=== PATIENT | male | born 1965 | race Caucasian/White ===

== ENCOUNTER 2016-08-06 03:36 | Emergency (ER) | payer OTHER ==
[~2016-08-06] VITALS: Ht 180.3 cm; Wt 77.3 kg
[2016-08-06 03:47] VITALS: BP 139/73; PULSE 100; RESP 18; TEMP 97.5; O2SAT 96
[2016-08-06] MEDS ORDERED: ALLO300T2 PO (03:58)
--- NOTE | 2016-08-06 06:42 | PD ---
HPI Chief Complaint: Alcohol/Drug Intoxication Time Seen by Provider: 06:36 Travel History International Travel<30 days: No Contact w/Intl Traveler<30days: No Traveled to known affect area: No History of Present Illness HPI 50-year-old white male presents to emergency department under [place] act by PD. The patient was found to be heavily intoxicated. Patient. Unable to care for himself and was brought to the ER. He has an abrasion to his right eyebrow. He states that he is visiting from [facility] he's been here in [place] now for 2 days. He is here on business. He also states that he owns a home here in [place]. He had been out drinking this evening. He states that he had consumed more than usual of alcohol. He denies any toxic ingestions. No medical complaints. He denies any syncope. No neck or back pain. No numbness, tingling or weakness. PFSH Past Medical History Gout: Yes Tetanus Vaccination: > 5 Years Past Surgical History Surgical History: No Previous Surgery Social History Alcohol Use: Yes Tobacco Use: Yes (DIPS) Substance Use: No Allergies-Medications (Allergen,Severity, Reaction): Coded Allergies: No Known Allergies (Unverified , 08/06/16) Reported Meds & Prescriptions Reported Meds & Active Scripts Active Reported Allopurinol 300 Mg Tab 300 Mg PO DAILY Review of Systems Except as stated in HPI: all other systems reviewed are Neg Psychiatric: No: Anxiety, Depression, Suicidal Ideations, Disorder of Thought, Mood Disorder, Substance Abuse, Homicidal Ideation (regular) Physical Exam Narrative GENERAL: Well-developed, well-nourished in no apparent distress. Nontoxic appearing. Smells of EtOH and appears intoxicated. HEAD: Normocephalic, abrasion to the right eyebrow. EYES: Pupils equal round and reactive. Extraocular motions intact. No scleral icterus. No injection or drainage. ENT: Nose clear. Throat without erythema, tonsillar hypertrophy or exudate. Uvula midline. Airway patent. NECK: Trachea midline. Supple, nontender, moves head freely. No central bony tenderness or spasm. CARDIOVASCULAR: Regular rate and rhythm without murmurs, gallops, or rubs. RESPIRATORY: Clear to auscultation. Breath sounds equal bilaterally. No wheezes , rales, or rhonchi. GASTROINTESTINAL: Abdomen soft, non-tender, nondistended. No hepato-splenomegaly , or palpable masses. No guarding. EXTREMITIES: No clubbing, cyanosis, or edema. No joint tenderness. BACK: Nontender without deformity. No flank tenderness. NEUROLOGICAL: Awake, alert and oriented x 3 .Cranial nerves grossly intact. Motor and sensory grossly within normal limits. Slurred speech. Data Data Last Documented VS Vital Signs Date Time Temp Pulse Resp B/P Pulse Ox O2 Delivery O2 Flow Rate FiO2 08/06/16 03:59 96 Room Air 08/06/16 03:47 97.5 100 18 139/73 MDM Medical Decision Making Medical Screen Exam Complete: Yes Emergency Medical Condition: Yes Medical Record Reviewed: Yes Differential Diagnosis Differential diagnoses: Alcohol intoxication, substance abuse, electrolyte abnormality, malingering Narrative Course The patient is here under [place] act. When he is able to exhibit sobriety is March[place] act will be lifted. The patient may be discharged earlier if he has a sober individual may assume responsibility. This is alcohol intoxication, [place] act Diagnosis Primary Impression: Alcohol intoxication Additional Impression: [place] act Patient Instructions: General Instructions Med/Other Pt SpecificInfo: No Meds Exist/No RX given Disposition: DISCHARGE HOME Condition: Stable José Monroe Aug 06, 2016 06:42
[2016-08-06 08:00] VITALS: BP 130/84
== END 2016-08-06 08:01 | disposition home or self-care (01) ==
LOC: NEPA 03:36
DX: F10.129 Alcohol abuse with intoxication, unspecified (principal)
CPT/HCPCS: 99284